=== PATIENT | female | born 1980 | race Hispanic/Latino ===

== ENCOUNTER 2016-04-30 12:24 | Emergency (ER) | payer SELFPAY ==
[2016-04-30] MEDS ORDERED: MORPHINE SULFATE 2 MG/1 ML IV ONE (12:40)
[2016-04-30] MEDS ORDERED: Sodium Chloride 0.9% 1,000 ML PRIMARY IV ONE (12:40)
[2016-04-30] MEDS ORDERED: NORMAL SALINE 10 ML SYRINGE FLUSH IVP PRN (12:40)
[2016-04-30] MEDS ORDERED: Pantoprazole Inj 40 MG in Normal Saline Flush 10 ML IVP ONE (12:40)
[2016-04-30] MEDS ORDERED: ONDANSETRON 4 MG/2 ML VIAL IVP ONE (12:40)
[2016-04-30 13:10] LABS: MONOCYTES # (AUTO) 0.57 10*3/UL (0.3-0.8)
[2016-04-30 13:22] LABS: BASOPHILS # (AUTO) 0.04 10*3/UL; BASOPHILS % (AUTO) 0.5 % (0-1); HEMATOCRIT 36.5 % (37.0-47.0); HEMOGLOBIN 11.8 g/dL (12.0-16.0); IMM GRAN % (AUTO) 0.1 % (0-5); IMM GRAN# (AUTO) 0.01 10*3/UL; MEAN CORPUSCULAR HEMOGLOBIN 25.9 PG (27-31); MEAN CORPUSCULAR HGB CONC 32.3 g/dL (33-37); MEAN PLATELET VOLUME 9.9 FL (7.4-12.2); MONOCYTES % (AUTO) 7.2 % (5-15); NEUTROPHILS # (AUTO) 4.55 10*3/UL; NEUTROPHILS % (AUTO) 57.2 % (50-80); RDW COEFFICIENT OF VARIATION 14.2 % (11.5-14.5); RED BLOOD COUNT 4.55 10^6/uL (4.20-5.40); WHITE BLOOD COUNT 7.95 10^3/uL (4.8-10.8)
[2016-04-30 13:24] LABS: PLATELET MORPHOLOGY COMMENT NORMAL MORPHOLOGY (NORM)
[2016-04-30 13:36] LABS: BLOOD UREA NITROGEN 10 mg/dL (7-22); CHLORIDE 106 meq/L (98-112); CREATININE 0.4 mg/dL (0.50-1.20); EST GLOMERULAR FILTRATION > 60 (>60 ml/min/1.73m(2)); GLUCOSE 86 mg/dL (78-110); POTASSIUM 4.1 meq/L (3.8-5.2); SODIUM 138 meq/L (135-145)
[2016-04-30 13:37] LABS: AMYLASE 54 U/L (30-110); ASPARTATE AMINO TRANSFERASE 19 IU/L (8-39); BILIRUBIN,TOTAL 0.4 mg/dL (0.3-1.2); CALCIUM 7.9 mg/dL (8.7-10.7); TOTAL PROTEIN 6.7 g/dL (6.1-8.0)
[2016-04-30 14:32] LABS: BILIRUBIN,URINE NEGATIVE (NEG); CLARITY,URINE CLEAR (CLEAR); GLUCOSE, URINE (UA) NEGATIVE (NEG); LEUKOCYTE ESTERASE ,URINE NEGATIVE (NEG); NITRATE,URINE POSITIVE (NEG); OCCULT BLOOD,URINE SMALL (NEG); PROTEIN,URINE NEGATIVE (NEG); UROBILINOGEN,URINE 0.2 EU/dL (0.2)
[2016-04-30 14:38] LABS: URINE SAMPLE TYPE CLEAN CATCH URINE
[2016-04-30 14:39] LABS: SQUAMOUS EPITHELIAL CELL,UR MANY
[2016-04-30 14:40] LABS: BACTERIA,URINE MODERATE
--- NOTE | 2016-04-30 14:48 | DI ---
HISTORY: Right lower quadrant abdominal pain. COMPARISON STUDIES: 06/17/2014. TECHNIQUE: Contiguous 3 mm axial images were obtained from the upper abdomen through the pelvis after administration of IV contrast. 387 images. FINDINGS: LUNG BASE: The lung bases are clear. No evidence of mass or airspace consolidation. No pleural effusi on. ABDOMEN: The liver is diffusely hypoattenuating. No liver masses seen. The gallbladder and spleen are unremarkable. Pancreas and adrenal glands appear normal. A focal 3 x 3 cm wide anterior abdominal wall defect is present with large fat containing hernia sac measuring approximately 11 cm wide. Normal colon and small bowel. No pericolonic or small bowel mesen teric inflammatory fat stranding. Normal appendix with no secondary signs of appendicitis. Left and right kidney are unremarkable. No renal stones seen. No evidence of obstructive uropathy. No evidence of pneumoperitoneum, free fluid or of peritoneal abscess. PELVIS: No suspicious pelvic or abdominal adenopathy. The bladder is distended. VESSELS: Unremarkable. MUSCULOSKELETAL: Bone mineralization is normal. No evidence of acute fracture or spinal canal stenos is. IMPRESSION: 1. No evidence of acute abnormality. Normal appendix. 2. Focal 3 x 3 cm low anterior abdominal wall defect with large 11 cm wide peritoneal fat containing hernia sac. NO evidence of bowel herniation or obstruction. 3. Fatty liver.
[2016-04-30 15:37] VITALS: RESP 16; TEMP 96.9
--- NOTE | 2016-05-01 02:42 | PDOC ---
Abdomen/Flank HPI - General Chief Complaint: Abdomen Pain Stated Complaint: epigastric pain Date Seen by Provider: 04/30/16 Time Seen by Provider: 12:30 Source: POSITIVE: Patient, Spouse Exam Limitations: POSITIVE: No limitations Nurse's Notes Reviewed & Considered: Yes - History of Present Illness Initial Comments: The patient is a 36-year-old female. She states that she has had episodes of epigastric pain and pain just right of the epigastrium since February. Her pain is usually worse or precipitated by eating. She states that she has had increased frequency of these spells during the last 3-5 days. These episodes are sometimes associated with nausea but no vomiting. No diarrhea, melena, hematochezia, hematemesis, dysuria, hematuria, or fevers. She's not had any abdominal surgery except a previous section. She last ate about 2 hours [employer] and had some pie at that time. Last menstrual period was April 20. Body Location Affected: REPORTS: Abdomen Timing: REPORTS: Abrupt Duration: 1-3 hours Severity: Moderate Quality: REPORTS: "Pain" Abdominal Pain Onset Location: REPORTS: RUQ, Epigastric Abdominal Pain Radiation: REPORTS: No radiation Context: REPORTS: None Modifying Factors: improves with: Nothing Associated Symptoms: REPORTS: Nausea Similar Symptoms Previously: Yes (as above) Recent Care Received: REPORTS: Denies Any Prior Injuries Related to Current Complaint?: No - Patient Home Medications Home Medications: Home Medications Phentermine HCl 15 mg PO DAILY 04/30/16 Sulfamethoxazole/Trimethoprim [Bactrim Ds Tablet] 1 tab PO Q12H #20 tab - Patient Allergies Allergies/Adverse Reactions: Allergies Allergy/AdvReac Type Severity Reaction Status Date / Time Penicillins Allergy Mild RASH Verified 04/30/16 12:33 Past Medical History - heen HEENT History: Other (please comment) Additional HEENT History: VERTIGO Cardiovascular History: Denies History Respiratory History: Denies History Gastrointestinal History: Denies History Genitourinary History: Denies History Endocrine History: Denies History Musculoskeletal History: Denies History Neurological History: Denies History Blood Disorders: Denies History Psychiatric History: Denies History History of Sexually Transmitted Diseases: No LMP: 04/20/16 Obstetrical History: Delivery, Other (please comment) Additional Obstetrical History: SUBSEQUENT INFECTION SCARE THAT REQUIRED TREATMENT Cancer History: Denies History In Past Year Been Physically Harmed or Verbally Threatened: No History of MDRO: Unknown Tobacco Use: Never Smoker Alcohol Use: None Substance Use Type: None Previous Surgical History: Yes Type / Date of Surgery: X 2 Significant Family History: No pertinent family hx Past Medical History Reviewed: Reviewed - No Changes ROS - Limitations ROS Limitations: No Limitations Constitution: REPORTS: Denies Symptoms Cardiovascular: REPORTS: Denies Cardiac Symptoms Respiratory: REPORTS: Denies Resp Symptoms Neurological: REPORTS: Denies Neuro Symptoms Gastrointestinal: REPORTS: Abdominal Pain, Nausea Endocrine: REPORTS: Denies Symptoms Musculoskeletal: REPORTS: Denies MS Symptoms Genitourinary: REPORTS: Denies Symptoms Eyes: REPORTS: Denies Symptoms ENT: REPORTS: Denies Symptoms Skin: REPORTS: Denies Skin Symptoms Lympathic: REPORTS: Denies Lympathic Symptoms Immunologic: POSITIVE: Denies Symptoms Psychiatric: POSITIVE: Denies Psych Symptoms Abdominal/Flank Pain PE - General Appearance General Appearance: POSITIVE: Alert, Cooperative, No Acute Distress, No Evidence of Trauma - HEENT HEENT: POSITIVE: Head Inspection Nml, Eyes Inspection Nml, Ears Inspection Nml, Nose Inspection Nml, Oral/Dental Inspect. Nml, Pharynx Inspect. Nml, PERRL, EOMI - Neck Neck: POSITIVE: Normal Inspection, No Apparent Injury - Respiratory Respiratory: POSITIVE: No Respiratory Distress, Breath Sounds Normal, Chest Non- Tender - Cardiovascular Cardiovascular: POSITIVE: Regular Rate and Rhythm, Heart Sounds Normal, Equal Pulses, Strong Pulses Peripheral Pulses: Radial (R): 2+, Radial (L): 2+ - Chest Chest: POSITIVE: Non Tender - Abdomen Abdomen: Soft: (All Quadrants), Normal Bowel Sounds: (All Quadrants), Denies Tenderness: (LLQ), (RLQ), (LUQ), No Splenomegaly: (All Quadrants), No Hepatomegaly: (All Quadrants), No Guarding: (All Quadrants), No Rebound: (All Quadrants), No Palpable Pulse: (All Quadrants), No Palpabale Mass: (All Quadrants), No Distention: (All Quadrants), No Rigidity: (All Quadrants), Tenderness Noted: (RUQ) (mild) Additional Abdominal Details: Abdominal examination shows bowel sounds to be active. There is some discomfort expressed on firm palpation over the right upper quadrant, especially just right of the epigastrium. No masses or organomegaly or rebound. 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, Motor Normal, Sensation Normal, 5, 6 - Psychological Psychiatric: POSITIVE: Affect Appropriate, Mood Appropriate Images - Complete Complete: 1 - Area of described pain/tenderness Abdomen Progress - Results Reviewed by me Xrays/CTs/US Reviewed by me: Yes Discussed with Radiologist: Yes Radiology Findings: CT scan abdomen and pelvis normal Lab Results Reviewed: Yes (urinalysis compatible with urinary tract infection) Lab Results:: Laboratory Results 04/30/16 04/30/16 Range/Units 13:15 14:20 WBC 7.95 (4.8-10.8) 10^3/uL RBC 4.55 (4.20-5.40) 10^6/uL Hgb 11.8 L (12.0-16.0) g/dL Hct 36.5 L (37.0-47.0) % MCV 80.2 L (81-99) FL MCH 25.9 L (27-31) PG MCHC 32.3 L (33-37) g/dL RDW Std Deviation 40.9 (39-50) fL RDW Coeff of Bebeto 14.2 (11.5-14.5) % Plt Count 294 (140-350) 10*3/uL MPV 9.9 (7.4-12.2) FL Immature Gran % (Auto) 0.1 (0-5) % Neut % (Auto) 57.2 (50-80) % Lymph % (Auto) 34.0 (10-50) % [place] % (Auto) 7.2 (5-15) % Eos % (Auto) 1.0 (0-8) % Baso % (Auto) 0.5 (0-1) % Immature Gran # (Auto) 0.01 10*3/UL Neut # (Auto) 4.55 10*3/UL Lymph # (Auto) 2.70 10*3/uL [place] # (Auto) 0.57 (0.3-0.8) 10*3/UL Eos # (Auto) 0.08 10*3/UL Baso # (Auto) 0.04 10*3/UL WBC Morphology Comment Normal morphology (NORM) Plt Morphology Comment Normal morphology (NORM) RBC Morph Comment Normal morphology (NORM) Sodium 138 (135-145) meq/L Potassium 4.1 (3.8-5.2) meq/L Chloride 106 (98-112) meq/L Carbon Dioxide 27 (23-33) meq/L Anion Gap 5 (5-20) BUN 10 (7-22) mg/dL Creatinine 0.4 L (0.50-1.20) mg/dL Estimated GFR > 60 (>60 ml/min/1.73m(2)) BUN/Creatinine Ratio 25.00 H (6-20) Glucose 86 (78-110) mg/dL Calculated Osmolality 283.0 (267-292) mOsm/kg Calcium 7.9 L (8.7-10.7) mg/dL Total Bilirubin 0.4 (0.3-1.2) mg/dL AST 19 (8-39) IU/L ALT 28 (9-52) IU/L Alkaline Phosphatase 68 (38-126) IU/L Total Protein 6.7 (6.1-8.0) g/dL Albumin 3.7 (3.5-4.8) g/dL Globulin 3.0 (2.50-4.10) g/dL Albumin/Globulin Ratio 1.20 L (1.3-2.0) mg/g Amylase 54 (30-110) U/L Lipase 58 (23-300) IU/L Serum HCG, Qual Negative Ur Collection Type Clean catch urine Urine Color Yellow Urine Clarity Clear (CLEAR) Urine pH 7.0 (5.0-8.5) Ur Specific [place] 1.010 (1.005-1.030) Urine Protein Negative (NEG) mg/dl Urine Glucose (UA) Negative (NEG) mg/dL Urine Ketones Negative (NEG) Urine Occult Blood Small H (NEG) Urine Nitrate Positive H (NEG) Urine Bilirubin Negative (NEG) Urine Urobilinogen 0.2 (0.2) EU/dL Ur Leukocyte Esterase Negative (NEG) Urine RBC 1-3 (NONE) /hpf Urine WBC 5-8 (NONE) Ur Squamous Epith Cells Many (NONE) Ur Renal Epithelial Cell None (NONE) Urine Crystals None Urine Bacteria Moderate (NONE) Urine Casts None (NONE) Urine Mucus None (NONE) Urine Trichomonas None (NONE) Urine Yeast None (NONE) Ur Culture Indicated? Culture set - Patient's Progress Pain Medication Addressed: POSITIVE: Yes (Patient given morphine sulfate IV) School/Work Release Addressed: POSITIVE: Not Applicable Re-examine Time: 14:45 Re-Examine Comment: Patient feeling better. Limited abdominal ultrasound arranged for Monday. Patient advised to avoid fatty foods; clear liquid diet for 24 hours. Status: POSITIVE: Improved, Re-Examined - Consult Counseled: POSITIVE: Patient, RE: Lab Results, RE: Radiology Results, RE: DX, RE : Need for F/U Patient Care Time - Estimated PCT Patient Care Time (In Minutes): 45 Vital Signs - VS Reviewed Vital Signs Reviewed: Yes Discharge Clinical Impression: Urinary tract infection, Biliary colic Discharge Disposition: Discharged to Home Condition: Stable Prescriptions / Orders: Sulfamethoxazole/Trimethoprim [Bactrim Ds Tablet] 1 tab PO Q12H #20 tab Patient Instructions Given at Discharge: Biliary Colic (ED), Urinary Tract Infection in Women (ED) Additional Instructions: I believe you're upper abdominal pain may be caused by what is known as a biliary colic. This is pain coming from the gallbladder which is usually due to gallstones. The best test for gallstones is an abdominal ultrasound, but since you have recently eaten it would not be productive to do the ultrasound at this time. You have's been scheduled for an ultrasound; please do not eat within 12 hours of having this procedure done. Follow-up with your primary care provider after the ultrasound is done. Take [id number] Zantac for heartburn. You also have a urinary tract infection. For this I have prescribed Bactrim DS, one every 12 hours for 10 days. Return any time if you develop high fevers, persistent vomiting or severe intractable pain. Otherwise follow up with your primary care provider as instructed. Your urine tests shows you have a urinary tract infection. Your blood test and CT scan of the abdomen and pelvis are all normal. Follow Up With: NONE,NONE [Primary Care Provider] - (Instructions as above. Follow-up with your primary care provider. Have ultrasound done as arranged. Medications as above. Return as necessary.)
== END 2016-04-30 15:30 | disposition home or self-care (01) ==
LOC: ER 12:24
DX: K80.50 Calculus of bile duct without cholangitis or cholecystitis without obstruction (principal); N39.0 Urinary tract infection, site not specified; R11.0 Nausea; R10.11 Right upper quadrant pain
CPT/HCPCS: 36415; 74177; 80053; 81001; 81003; 82150; 83690; 84703; 85025; 87077; 87088; 87186; 96361; 96374; 96375; 99283; J2270; J2405; J3490; J7030

== ENCOUNTER → 2016-05-03 | Outpatient (CLI) | payer SELFPAY ==
--- NOTE | 2016-05-03 16:35 | DI ---
History: Abdominal pain. Pancreas spleen and right upper quadrant. Ultrasound imaging using a 4 MHz transducer. Findings: Gallbladder appears normal, free of stone. The wall is 2 mm, normal. Common bile duct diame ter is 4 mm. No choledocholithiasis observed Liver is normal to extent detected. Pancreas normal except for tail which is not well seen.. Right kidney 12.1 cm x 3.8 x 4.8 cm. Aorta proximal mid and distal 2.1, 1.5 and 1.1 cm, all within no rmal limits. Impression: Unremarkable abdominal ultrasound no gallstones. No other focal abnormalities
== END ==
LOC: US 13:09
PROVIDERS: ATTEND Emergency Medicine
DX: R10.84 Generalized abdominal pain (principal)
CPT/HCPCS: 76705